=== PATIENT | female | born 1965 | race Caucasian/White ===

== ENCOUNTER 2020-08-08 17:12 | Emergency (ER) | payer OTHER ==
[2020-08-08 18:32] LABS: Absolute Lymphocytes (CBC) 1.7 K/uL (0.7-4.9); Basophils % 0.5 % (0-1.3); Hematocrit 39.7 % (36.0-45.0); Lymphocytes % 13.1 % (15.3-44.8); MPV 8.6 fL (7.6-11.3); RBC Red Blood Cell Count 4.77 M/uL (3.86-4.86)
[2020-08-08] MEDS ORDERED: FENTANYL CITR 100 MCG/2 ML ONE ×2 (18:34→20:26)
[2020-08-08] MEDS ORDERED: ONDANSETRON 4 MG/2 ML VIAL ONE (18:34)
[2020-08-08] MEDS ORDERED: NA CHLORIDE 0.9% 1,000 ML ONE (18:34)
[2020-08-08 18:56] LABS: Potassium 3.4 mmol/L (3.5-5.1)
--- NOTE | 2020-08-08 19:55 | RAD REPORT ---
EXAM DESCRIPTION: CT - Abdomen Pelvis W Contrast - 08/08/2020 7:36 pm CLINICAL HISTORY: Abdominal pain COMPARISON: 2017 TECHNIQUE: Computed axial tomography of the abdomen pelvis was obtained. 100 cc Isovue-300 was admin istered intravenously. Oral contrast was not requested which limits evaluation of bowel. All CT scans are performed using dose optimization technique as appropriate and may include automated exposure control or mA/KV adjustment according to patient size. FINDINGS: The liver, spleen, pancreas, adrenal and left kidney appear unremarkable. A 2 millimeter n onobstructing right renal calculus. Cholecystectomy Diverticula stem from the colon. Marked thickening of a short segment of sigmoid colon. Moderate stra nding adjacent to sigmoid colon. No free air. No abscess. Trace amount of free fluid IMPRESSION: Moderate sigmoid diverticulitis
--- NOTE | 2020-08-08 20:07 | ER ---
Nurse's Notes [facility] Name: Kathie Hendrickson Age: 55 yrs Sex: Female : 1965 Arrival Date: 08/08/2020 Time: 17:15 Bed 4 Private MD: Diagnosis: Diverticulitis of intestine, part unspecified, without perforation or abscess without bleeding Presentation: 08/08 17:40 Chief complaint: Lower abdominal pain upon waking today. Hx of diverticulitis, reports hb pain is similar to previous episodes. Coronavirus screen: At this time, the client does not indicate any symptoms associated with coronavirus-19. Ebola Screen: No symptoms or risks identified at this time. Initial Sepsis Screen: Does the patient meet any 2 criteria? No. Patient's initial sepsis screen is negative. Does the patient have a suspected source of infection? No. Patient's initial sepsis screen is negative. Risk Assessment: Do you want to hurt yourself or someone else? Patient reports no desire to harm self or others. Onset of symptoms was August 08, 2020. 17:40 Method Of Arrival: Ambulatory hb 17:40 Acuity: [place] 3 hb Historical: - Allergies: 17:42 Codeine; hb 17:42 Morphine; hb - PMHx: 17:42 Diverticulitis; hb - PSHx: 17:42 Knee - Right; hb - Immunization history:: Adult Immunizations up to date. - Social history:: Smoking status: Patient denies any tobacco usage or history of. Screenin:32 Abuse screen: Denies threats or abuse. Denies injuries from another. Nutritional iw screening: No deficits noted. Tuberculosis screening: No symptoms or risk factors identified. Fall Risk None identified. Assessment: 18:31 General: Appears in no apparent distress. Behavior is calm, cooperative. Pain: iw Complains of pain in abdomen Pain currently is 7 out of 10 on a pain scale. Neuro: Level of Consciousness is awake, alert, obeys commands, Oriented to person, place, time, situation, Moves all extremities. Full function. Cardiovascular: Patient's skin is warm and dry. Respiratory: Respiratory effort is even, unlabored, Respiratory pattern is regular, symmetrical. GI: Bowel sounds present X 4 quads. Abd is soft X 4 quads Reports lower abdominal pain, upper abdominal pain. Derm: Skin is intact, is healthy with good turgor. Musculoskeletal: Range of motion: intact in all extremities. 18:54 Reassessment: Patient appears in no apparent distress at this time. Patient and/or iw family updated on plan of care and expected duration. Pain level reassessed. Patient is alert, oriented x 3, equal unlabored respirations, skin warm/dry/pink. 19:46 Reassessment: Patient appears in no apparent distress at this time. Patient is alert, rr5 oriented x 3, equal unlabored respirations, skin warm/dry/pink. back from CT scan. 19:48 General: Appears in no apparent distress. comfortable, Behavior is calm, cooperative, rr5 appropriate for age. Pain: Complains of pain in abdomen Quality of pain is described as aching, Pain began gradually, Is intermittent. Neuro: Level of Consciousness is awake, alert, obeys commands, Oriented to person, place, time. Cardiovascular: Capillary refill < 3 seconds Patient's skin is warm and dry. Respiratory: Airway is patent Respiratory effort is even, unlabored, Respiratory pattern is regular, symmetrical. GI: Reports lower abdominal pain, upper abdominal pain. : No signs and/or symptoms were reported regarding the genitourinary system. EENT: No signs and/or symptoms were reported regarding the EENT system. Derm: Skin temperature is warm. 20:30 Reassessment: Patient appears in no apparent distress at this time. Patient is alert, rr5 oriented x 3, equal unlabored respirations, skin warm/dry/pink. discharge instruction given and explained without complaints made Patient states symptoms have improved. Vital Signs: 17:40 BP 136 / 102; Pulse 92; Resp 16; Temp 98.6(TE); Pulse Ox 100% on R/A; Pain 10/10; hb 18:32 BP 123 / 72; Pulse 98; Resp 16; Pulse Ox 100% on R/A; Pain 7/10; iw 19:15 BP 121 / 75; Pulse 90; Resp 17; Temp 98.3; Pulse Ox 100% ; rr5 20:31 BP 120 / 65; Pulse 85; Resp 16; Pulse Ox 99% ; rr5 ED Course: 17:15 Patient arrived in ED. rg4 17:24 Lisbet Norton FNP-C [facility]. kb 17:24 Neftaly Kemp MD is Attending Physician. kb 17:42 Triage completed. hb 17:42 Arm band placed on. hb 17:59 Adriana Larson, RN is Primary Nurse. iw 18:00 Initial lab(s) drawn, by me, sent to lab. Inserted saline lock: 20 gauge in right iw antecubital area, using aseptic technique. Blood collected. 19:15 Patient has correct armband on for positive identification. Bed in low position. Call rr5 light in reach. 19:36 CT Abd/Pelvis - IV Contrast Only In Process Unspecified. EDMS 20:31 No provider procedures requiring assistance completed. IV discontinued, intact, rr5 bleeding controlled, No redness/swelling at site. Pressure dressing applied. Administered Medications: 18:30 Drug: NS 0.9% 1000 ml Route: IV; Rate: 1000 ml; Site: right antecubital; iw 19:40 Follow up: Response: No adverse reaction; IV Status: Completed infusion; IV Intake: rr5 1000ml 18:30 Drug: fentaNYL (PF) 50 mcg Route: IVP; Site: right antecubital; iw 19:30 Follow up: Response: No adverse reaction; Pain is decreased; RASS: Alert and Calm (0) rr5 18:31 Drug: Zofran (Ondansetron) 4 mg Route: IVP; Site: right antecubital; iw 19:30 Follow up: Response: No adverse reaction rr5 20:15 Drug: fentaNYL (PF) 50 mcg {Note: rass 0.} Route: IVP; Site: right antecubital; rr5 20:32 Follow up: Response: No adverse reaction; Pain is decreased; RASS: Alert and Calm (0) rr5 20:19 Drug: Flagyl 500 mg Route: PO; rr5 20:32 Follow up: Response: No adverse reaction rr5 20:19 Drug: Cipro 500 mg Route: PO; rr5 20:32 Follow up: Response: No adverse reaction rr5 Intake: 19:40 IV: 1000ml; Total: 1000ml. rr5 Outcome: 20:06 Discharge ordered by . kb 20:31 Discharged to home ambulatory. rr5 20:31 Condition: stable 20:31 Discharge instructions given to patient, Instructed on discharge instructions, follow up and referral plans. Demonstrated understanding of instructions, follow-up care. 20:33 Patient left the ED. rr5 Signatures: Dispatcher [employer] EDMS Lisbet Norton FNP-C TRIGONOMETRY TEACHER-Ckb Adriana Larson, RN RN iw Chioma Varghese, RN RN Sarah Huerta rg4 Jasson Corrales, RN RN rr5
--- NOTE | 2020-08-08 20:07 | EDPHYS ---
Physician Documentation [facility] Name: Kathie Hendrickson Age: 55 yrs Sex: Female : 1965 Arrival Date: 08/08/2020 Time: 17:15 Bed 4 Private MD: ED Physician Neftaly Kemp HPI: 08/08 20:09 This 55 yrs old Female presents to ER via Ambulatory with complaints of kb Abdominal Pain. 20:09 The patient presents with abdominal pain in the lower abdomen. Onset: The kb symptoms/episode began/occurred yesterday. The symptoms do not radiate. Associated signs and symptoms: none. The symptoms are described as constant. Modifying factors: The symptoms are alleviated by nothing, the symptoms are aggravated by nothing. Severity of pain: At its worst the pain was moderate in the emergency department the pain is unchanged. The patient has experienced similar episodes in the past, several times. The patient has been recently seen by a physician:. Pt reports she has a significant history of diverticulitis. States she has the same pain that she normally does when she has diverticulitis. Her dr called in [place] and [place], but wanted her to come in for a CT. Pt has appt with her GI on Wednesday. Historical: - Allergies: 17:42 Codeine; hb 17:42 Morphine; hb - PMHx: 17:42 Diverticulitis; hb - PSHx: 17:42 Knee - Right; hb - Immunization history:: Adult Immunizations up to date. - Social history:: Smoking status: Patient denies any tobacco usage or history of. ROS: 20:09 Constitutional: Negative for fever, chills, and weight loss, Cardiovascular: Negative kb for chest pain, palpitations, and edema, Respiratory: Negative for shortness of breath, cough, wheezing, and pleuritic chest pain, Back: Negative for injury and pain, MS/Extremity: Negative for injury and deformity, Skin: Negative for injury, rash, and discoloration, Neuro: Negative for headache, weakness, numbness, tingling, and seizure. 20:09 Abdomen/GI: Positive for abdominal pain, Negative for nausea, vomiting, and diarrhea. Exam: 20:09 Constitutional: This is a well developed, well nourished patient who is awake, alert, kb and in no acute distress. Head/Face: Normocephalic, atraumatic. Chest/axilla: Normal chest wall appearance and motion. Nontender with no deformity. No lesions are appreciated. Cardiovascular: Regular rate and rhythm with a normal S1 and S2. No gallops, murmurs, or rubs. Normal PMI, no JVD. No pulse deficits. Respiratory: Lungs have equal breath sounds bilaterally, clear to auscultation and percussion. No rales, rhonchi or wheezes noted. No increased work of breathing, no retractions or nasal flaring. Back: No spinal tenderness. No costovertebral tenderness. Full range of motion. Skin: Warm, dry with normal turgor. Normal color with no rashes, no lesions, and no evidence of cellulitis. MS/ Extremity: Pulses equal, no cyanosis. Neurovascular intact. Full, normal range of motion. Neuro: Awake and alert, GCS 15, oriented to person, place, time, and situation. Cranial nerves II-XII grossly intact. Motor strength 5/5 in all extremities. Sensory grossly intact. Cerebellar exam normal. Normal gait. 20:09 Abdomen/GI: Inspection: abdomen appears normal, Bowel sounds: normal, Palpation: soft, in all quadrants, moderate abdominal tenderness, in the right lower quadrant and left lower quadrant. Vital Signs: 17:40 BP 136 / 102; Pulse 92; Resp 16; Temp 98.6(TE); Pulse Ox 100% on R/A; Pain 10/10; hb 18:32 BP 123 / 72; Pulse 98; Resp 16; Pulse Ox 100% on R/A; Pain 7/10; iw 19:15 BP 121 / 75; Pulse 90; Resp 17; Temp 98.3; Pulse Ox 100% ; rr5 20:31 BP 120 / 65; Pulse 85; Resp 16; Pulse Ox 99% ; rr5 MDM: 17:49 Patient medically screened. kb 20:01 Data reviewed: vital signs, nurses notes. Data interpreted: Pulse oximetry: on room air kb is 100 %. Interpretation: normal. Counseling: I had a detailed discussion with the patient and/or guardian regarding: the historical points, exam findings, and any diagnostic results supporting the discharge/admit diagnosis, lab results, radiology results, the need for outpatient follow up, a family practitioner, to return to the emergency department if symptoms worsen or persist or if there are any questions or concerns that arise at home. 20:05 ED course: Pt reports her dr called in cipro and flagyl and her mother picked them up kb so she already has those at home.. 08/08 17:58 Order name: Basic Metabolic Panel; Complete Time: 18:59 kb 08/08 17:58 Order name: CBC with Diff; Complete Time: 18:36 kb 08/08 17:58 Order name: CT Abd/Pelvis - IV Contrast Only; Complete Time: 20:00 kb 08/08 17:58 Order name: IV Saline Lock; Complete Time: 18:31 kb 08/08 17:58 Order name: Labs collected and sent; Complete Time: 18:31 kb Administered Medications: 18:30 Drug: NS 0.9% 1000 ml Route: IV; Rate: 1000 ml; Site: right antecubital; iw 19:40 Follow up: Response: No adverse reaction; IV Status: Completed infusion; IV Intake: rr5 1000ml 18:30 Drug: fentaNYL (PF) 50 mcg Route: IVP; Site: right antecubital; iw 19:30 Follow up: Response: No adverse reaction; Pain is decreased; RASS: Alert and Calm (0) rr5 18:31 Drug: Zofran (Ondansetron) 4 mg Route: IVP; Site: right antecubital; iw 19:30 Follow up: Response: No adverse reaction rr5 20:15 Drug: fentaNYL (PF) 50 mcg {Note: rass 0.} Route: IVP; Site: right antecubital; rr5 20:32 Follow up: Response: No adverse reaction; Pain is decreased; RASS: Alert and Calm (0) rr5 20:19 Drug: Flagyl 500 mg Route: PO; rr5 20:32 Follow up: Response: No adverse reaction rr5 20:19 Drug: Cipro 500 mg Route: PO; rr5 20:32 Follow up: Response: No adverse reaction rr5 Disposition: 08/09 05:08 Co-signature as Attending Physician, Neftaly Kemp MD I agree with the assessment and kdr plan of care. Disposition: 08/08/20 20:06 Discharged to Home. Impression: Diverticulitis of intestine, part unspecified, without perforation or abscess without bleeding. - Condition is Stable. - Discharge Instructions: Diverticulitis, [id number]. - Medication Reconciliation Form, Thank You Letter, Antibiotic Education, Prescription Opioid Use form. - Follow up: Private Physician; When: 2 - 3 days; Reason: Recheck today's complaints, Continuance of care, Re-evaluation by your physician. Follow up: Emergency Department; When: As needed; Reason: Worsening of condition. Signatures: Dispatcher [employer] EDHI ErrolLisbet, DECORATING INSTRUCTOR-C DECORATING INSTRUCTOR-Ckb Neftaly Kemp MD MD [facility] Adriana Larson RN RN Chioma Varghese RN RN Jasson Corrales RN RN rr5 Corrections: (The following items were deleted from the chart) 08/08 20:33 20:06 08/08/2020 20:06 Discharged to Home. Impression: Diverticulitis of intestine, rr5 part unspecified, without perforation or abscess without bleeding. Condition is Stable. Forms are Medication Reconciliation Form, Thank You Letter, Antibiotic Education, Prescription Opioid Use. Follow up: Private Physician; When: 2 - 3 days; Reason: Recheck today's complaints, Continuance of care, Re-evaluation by your physician. Follow up: Emergency Department; When: As needed; Reason: Worsening of condition. kb
[2020-08-08] MEDS ORDERED: CIPROFLOXACIN HCL 500 MG TAB ONE (20:25)
[2020-08-08] MEDS ORDERED: metroNIDAZOLE 500 MG TABLET ONE (20:25)
[2020-08-08 22:15] VITALS: TEMP 98.3
[2020-08-08 22:18] VITALS: BP 120/65; O2SAT 99
== END 2020-08-08 20:33 | disposition home or self-care (01) ==
LOC: ER 17:12
DX: K57.32 Diverticulitis of large intestine without perforation or abscess without bleeding (principal); Z88.5 Allergy status to narcotic agent
CPT/HCPCS: 96361; 85025; 80048; 36415; 74177; 96375; 96374; 99284; Q9967; J3010 ×2; J7030; J2405